=== PATIENT | female | born 1990 | race African-American/Black ===

== ENCOUNTER 2017-04-30 12:00 | Emergency (ER) | payer OTHER, SELFPAY ==
[2017-04-30] MEDS ORDERED: Ketorolac Tromethamine 60 MG/2 ML VIAL ONE (12:20)
[2017-04-30] MEDS ORDERED: Cyclobenzaprine 10 MG TAB ONE (12:20)
== END 2017-04-30 13:05 | disposition home or self-care (01) ==
LOC: NAV ERS 12:00
DX: S16.1XXA Strain of muscle, fascia and tendon at neck level, initial encounter (principal); G44.209 Tension-type headache, unspecified, not intractable; E03.9 Hypothyroidism, unspecified; F32.9 Major depressive disorder, single episode, unspecified; Z79.899 Other long term (current) drug therapy; X50.9XXA Other and unspecified overexertion or strenuous movements or postures, initial encounter
CPT/HCPCS: 96372; J1885

== ENCOUNTER 2017-08-03 22:30 | Emergency (ER) | payer SELFPAY | END 2017-08-03 23:00 | disposition home or self-care (01) | LOC: NAV ERS 22:30 | DX: S09.90XA Unspecified injury of head, initial encounter (principal); E03.9 Hypothyroidism, unspecified; F32.9 Major depressive disorder, single episode, unspecified; Z79.899 Other long term (current) drug therapy; W22.8XXA Striking against or struck by other objects, initial encounter | CPT/HCPCS: 99283 ==

== ENCOUNTER 2020-08-01 00:20 | Emergency (ER) | payer MEDICAID, SELFPAY ==
[2020-08-01] MEDS ORDERED: Albuterol Sulfate 2.5 mg/3 ml Neb ONE (00:39)
== END 2020-08-01 01:25 | disposition home or self-care (01) ==
LOC: NAV ERS 00:20
DX: R05 Cough (principal); E03.9 Hypothyroidism, unspecified
CPT/HCPCS: 71045; 94640; 94760; J7611

== ENCOUNTER 2020-08-21 19:57 | Emergency (ER) | payer MEDICAID | END 2020-08-21 20:23 | disposition home or self-care (01) | LOC: NAV ERS 19:57 | DX: M79.672 Pain in left foot (principal); E03.9 Hypothyroidism, unspecified; Z79.899 Other long term (current) drug therapy | CPT/HCPCS: 99283 ==

== ENCOUNTER 2020-12-02 22:31 | Emergency (ER) | payer MEDICAID, SELFPAY ==
[2020-12-02 22:59] LABS: #Lymphocytes 2.9 thou/uL (1.20-3.40); #Monocytes 0.8 thou/uL (0.11-0.59); #Neutrophils 2.8 thou/uL (1.40-6.50); %Basophils 0.5 % (0.0-1.0); %Eosinophils 0.7 % (0.0-10.0); %Lymphocytes 44.1 % (21.0-51.0); %Monocytes 12.6 % (0.0-10.0); Hemoglobin 14.8 g/dL (12.0-16.0); Mean Corpuscular HGB CONC 32.2 g/dL (32.0-36.0); Mean Corpuscular Hemoglobin 27.2 pg (27.0-31.0); Mean Corpuscular Volume 84.6 fL (78.0-98.0); Mean Platelet Volume 7.5 fL (7.4-10.4); Platelet Count 198 thou/uL (130-400); RBC Distribution Width 12.3 % (11.5-14.5); Red Blood Cell (RBC) Count 5.43 mill/uL (4.20-5.40); White Blood Cell (WBC) Count 6.7 thou/uL (4.8-10.8)
[2020-12-02 23:09] LABS: BHCG - Serum Negative (NEGATIVE); Pregs Control Bar Appear? YES (CONTROL BAR)
[2020-12-02 23:15] LABS: ALT (SGPT) 16 U/L (8-55); AST (SGOT) 17 U/L (5-34); Albumin 3.9 g/dL (3.5-5.0); Alkaline Phosphatase 83 U/L (40-110); Anion Gap 14 mmol/L (10-20); BUN (Urea Nitrogen) 11 mg/dL (7.0-18.7); Bilirubin, Total 0.3 mg/dL (0.2-1.2); Calc. Creatinine Clearance 0 mL/min (70-130); Calcium 9.7 mg/dL (7.8-10.44); Carbon Dioxide 23 mmol/L (22-29); Chloride 106 mmol/L (98-107); Globulin 4.4 g/dL (2.4-3.5); Glucose 97 mg/dL (70-105); Potassium 3.8 mmol/L (3.5-5.1); Protein, Total 8.3 g/dL (6.0-8.3); Sodium 139 mmol/L (136-145)
== END 2020-12-02 23:56 | disposition home or self-care (01) ==
LOC: NAV ERS 22:31
DX: R07.89 Other chest pain (principal); R00.0 Tachycardia, unspecified; E03.9 Hypothyroidism, unspecified; J42 Unspecified chronic bronchitis; Z79.899 Other long term (current) drug therapy
CPT/HCPCS: 36415; 71045; 80053; 83880; 84484; 84703; 85025; 85379; 93005; 94760

== ENCOUNTER 2022-04-10 23:23 | Emergency (ER) | payer SELFPAY ==
[2022-04-10] MEDS ORDERED: traMADol HCl 50 MG TAB ONE (23:54)
[2022-04-10] MEDS ORDERED: Ibuprofen 200 MG TAB ONE (23:54)
[2022-04-10] MEDS ORDERED: Sulfameth/Trimethoprim DS 800-160mg TAB ONE (23:54)
== END 2022-04-11 00:15 | disposition home or self-care (01) ==
LOC: NAV ERS 23:23
DX: L03.116 Cellulitis of left lower limb (principal); L03.115 Cellulitis of right lower limb; E03.9 Hypothyroidism, unspecified
CPT/HCPCS: 99283

== ENCOUNTER 2024-10-06 06:06 | Emergency (ER) | payer SELFPAY | END 2024-10-06 08:25 | disposition home or self-care (01) | LOC: NAV ERS 06:06 | DX: R05.9 Cough, unspecified (principal) | CPT/HCPCS: 71046 ==

== ENCOUNTER 2024-10-09 19:11 | Emergency (ER) | payer SELFPAY ==
[2024-10-09] MEDS ORDERED: Acetaminophen 500 MG TAB ONE (20:01)
== END 2024-10-09 20:40 | disposition home or self-care (01) ==
LOC: NAV ERS 19:11
DX: G43.909 Migraine, unspecified, not intractable, without status migrainosus (principal); F41.9 Anxiety disorder, unspecified; G97.1 Other reaction to spinal and lumbar puncture
CPT/HCPCS: 99283; J3030